=== PATIENT | male | born 1950 | race Caucasian/White ===

== ENCOUNTER 2018-09-12 08:26 | Emergency (ER) | payer BC, MEDICARE ==
[~2018-09-12] VITALS: Ht 177.8 cm; Wt 102.1 kg
[2018-09-12] MEDS ORDERED: SODIUM CHLORIDE 0.9% 1000ML 1,000 ML IV STA (08:39)
[2018-09-12] MEDS ORDERED: ONDANSETRON HCL INJ 2 MG/ML VIAL IV STA (08:39)
[2018-09-12] MEDS ORDERED: PANTOPRAZOLE 40 MG 10ML VIAL IV STA (08:39)
[2018-09-12] MEDS ORDERED: DIATRIZOATE MEGL/DIATRIZOA SOD 30 ML BTL PO ONE (08:49)
[2018-09-12] MEDS ORDERED: MORPHINE SULFATE INJ 4 MG/ML INJ IV ONE (08:55)
[2018-09-12 09:06] LABS: BASOPHILS % 0.2 % (0.0-1.0); EOSINOPHILS % 0.4 % (0.0-6.0); HEMOGLOBIN 16.1 g/dL (14.0-18.0); LYMPHOCYTES # (AUTO) 1.2 (1.0-3.2); LYMPHOCYTES % 22.1 % (18.0-39.1); MEAN CORPUSCULAR HEMOGLOBIN 33.2 pg (28-32); MEAN CORPUSCULAR HGB CONC 34.3 g/dL (31-35); MEAN CORPUSCULAR VOLUME 96.9 fL (81-99); MONOCYTES # (AUTO) 0.8 (0.2-0.8); MONOCYTES % 14.9 % (4.4-11.3); NEUTROPHILS # (AUTO) 3.3 (2.1-6.9); NEUTROPHILS % 62.2 % (38.7-80.0); PLATELET COUNT 197 x10e3/uL (140-360); RED BLOOD COUNT 4.85 x10e6/uL (4.3-5.7); RED CELL DISTRIBUTION WIDTH 12.8 % (11.7-14.4)
[2018-09-12 09:14] LABS: INR 0.87; PROTHROMBIN TIME 12.6 seconds (11.9-14.5)
[2018-09-12 09:23] LABS: ALANINE AMINOTRANSFERASE 19 IU/L (0-55); ALBUMIN 3.7 g/dL (3.5-5.0); ALKALINE PHOSPHATASE 67 IU/L (40-150); BLOOD UREA NITROGEN 12 mg/dL (7-26); BUN/CREATININE RATIO 14 (6-25); CARBON DIOXIDE 26 mmol/L (22-29); CHLORIDE 95 mmol/L (98-107); CREATINE KINASE 99 IU/L (30-200); CREATININE, SERUM 0.86 mg/dL (0.72-1.25); EST GLOMERULAR FILTRATION RATE > 60 ML/MIN (60-); GLUCOSE 146 mg/dL (74-118); LIPASE 13 U/L (8-78); MAGNESIUM 1.6 MG/DL (1.3-2.1); SODIUM 133 mmol/L (136-145)
--- NOTE | 2018-09-12 10:39 | Diagnostic Imaging Report ---
EXAM: CT Abdomen and Pelvis WITH contrast INDICATION: ^LOWER ABD PAIN AND DIARRHEA COMPARISON: None. TECHNIQUE: Abdomen and pelvis were scanned utilizing a multidetector helical scanner from the lung base to the pubic symphysis after administration of IV contrast. Coronal and sagittal reformations were obtained. Dose modulation, iterative reconstruction, and/or weight based adjustment of the mA/kV was utilized to reduce the radiation dose to as low as reasonably achievable. Routine protocol was performed. Scan was performed when during portal venous phase. IV CONTRAST: 100 mL of Isovue-370 ORAL CONTRAST: Gastroview COMPLICATIONS: None RADIATION DOSE: Total DLP: 697.85 mGy*cm Estimated effective dose: (DLP x 0.015 x size factor) mSv CTDIvol has been reviewed. It is below the limits set by the Radiation Protocol Committee (RPC). FINDINGS: LINES and TUBES: None. LOWER THORAX: Unremarkable. Anterior lingular calcified granuloma. HEPATOBILIARY: No focal hepatic lesions. No biliary ductal dilation. GALLBLADDER: No radio-opaque stones or sludge. No wall thickening. SPLEEN: No splenomegaly. PANCREAS: No focal masses or ductal dilatation. ADRENALS: No adrenal nodules KIDNEYS/URETERS: Kidneys enhance symmetrically. No hydronephrosis. No cystic or solid mass lesions. No stones. GI TRACT: No abnormal distention or evidence of bowel obstruction. Mild descending colon and rectosigmoid wall thickening. Mild sigmoid diverticulosis without evidence of diverticulitis. Appendix is normal. PELVIC ORGANS/BLADDER: Unremarkable. LYMPH NODES: No lymphadenopathy. VESSELS: There is mild to moderate atherosclerotic disease in the aorta and major arterial branches. PERITONEUM / RETROPERITONEUM: No free air. Trace perihepatic and dependent ascites. BONES: Bilateral femoral head subchondral sclerosis and mild cystic changes, right greater than left. SOFT TISSUES: Small fat-containing bilateral inguinal hernia. IMPRESSION: Mild descending colon and rectosigmoid wall thickening, suggestive of mild colitis. Trace ascites, likely reactive. Signed by: Dr. Americo Villaseñor MD on 09/12/2018 10:36 AM
[2018-09-12] MEDS ORDERED: B-12500 MCG PO (11:00)
[2018-09-12] MEDS ORDERED: OMEGA 3 1,0001 EACH PO (11:00)
[2018-09-12] MEDS ORDERED: TAMSULOSIN HCL0.4 MG PO (11:00)
[2018-09-12] MEDS ORDERED: APRISO0.375 GM PO (11:00)
[2018-09-12] MEDS ORDERED: SIMVASTATIN20 MG PO (11:00)
[2018-09-12] MEDS ORDERED: RANITIDINE HCL150 MG PO (11:00)
[2018-09-12] MEDS ORDERED: ASPIR 8181 MG PO (11:00)
[2018-09-12 11:02] LABS: BILIRUBIN,URINE NEGATIVE (NEGATIVE); CLARITY,URINE CLEAR (CLEAR); COLOR,URINE YELLOW (YELLOW); KETONES,URINE NEGATIVE (NEGATIVE); LEUKOCYTE ESTERASE ,URINE NEGATIVE (NEGATIVE); NITRITE,URINE NEGATIVE (NEGATIVE); PROTEIN,URINE DIPSTICK NEGATIVE (NEGATIVE); URINE UROBILINOGEN 0.2 mg/dL (0.2 - 1)
[2018-09-12] MEDS ORDERED: IOPAMIDOL 370 MG/ML 200 ML INFUS..BTL INJ ONE (11:05)
[2018-09-12] MEDS ORDERED: SODIUM CHLORIDE 0.9% 50ML 50 ML ONE (11:05)
[2018-09-12 11:15] LABS: BACTERIA,URINE FEW /HPF; EPITHELIAL CELLS,URINE FEW /LPF; RBC,URINE 0-5 /HPF (0-5); WBC,URINE (MAN) 0-5 /HPF (0-5)
[2018-09-12 11:41] LABS: OCCULT BLOOD STOOL POSITIVE (NEGATIVE)
[2018-09-12] MEDS ORDERED: MORPHINE SULFATE INJ 4 MG/ML INJ IV STA (12:26)
[2018-09-12 13:15] VITALS: BP 128/81
[2018-09-12 16:07] LABS: C DIFFICILE TOXIN A&B AMP PROB NEGATIVE (NEGATIVE)
== END 2018-09-12 13:19 | disposition home or self-care (01) ==
LOC: ER 08:26
DX: R10.32 Left lower quadrant pain (principal); R11.0 Nausea; K52.9 Noninfective gastroenteritis and colitis, unspecified; E78.5 Hyperlipidemia, unspecified; K21.9 Gastro-esophageal reflux disease without esophagitis; F17.210 Nicotine dependence, cigarettes, uncomplicated
CPT/HCPCS: 36415; 74177; 80053; 81001; 82270; 82550; 82553; 83605; 83690; 83735; 84484; 85025; 85610; 85730; 87086; 87186; 87493; 99284; J2270; J2405; J7030; Q9967